=== PATIENT | male | born 1990 | race Caucasian/White ===

== ENCOUNTER 2024-06-04 10:15 | Emergency (ER) | payer OTHER, SELFPAY ==
[2024-06-04 10:30] VITALS: BP 145/92
[2024-06-04 10:50] LABS: % Basophils 0.5 % (0-2); % Eosinophils 2.8 % (0-6); % Immature Granulocytes 0.2 % (0-0.5); % Lymphocytes 48.1 % (20.5-51.1); % Neutrophils 40.4 % (42.2-75.2); Absolute Eosinophils 0.2 10^3/uL (0-0.7); Absolute Monocytes 0.5 10^3/uL (0.1-0.6); Absolute Neutrophils 2.5 10^3/uL (1.4-6.5); Hematocrit 45.8 % (39.0-52.0); Hemoglobin 15.9 g/dL (13.0-18.0); Mean Corp Hgb Conc. 34.7 g/dL (33.0-37.0); Mean Corpuscular Hgb 27.6 pg (27.0-31.0); Mean Corpuscular Volume 79.5 fL (80.0-94.0); Mean Platelet Volume 9.1 fL (7.4-10.4); Nucleated Red Blood Cells % 0 % (-); Platelet Count 188 10^3/uL (130-400); Red Blood Cell Count 5.76 10^6/uL (4.70-6.10); Red Cell Dist. Width 12.9 % (11.5-14.5); White Blood Cell Count 6.2 10^3/uL (4.8-10.8)
[2024-06-04 11:01] LABS: ALT (SGPT) 50 U/L (0-50); AST (SGOT) 34 U/L (17-59); Albumin 5.1 g/dl (3.5-5.0); Alkaline Phosphatase 63 U/L (38-126); Blood Urea Nitrogen 15 mg/dl (9-20); Calcium 9.8 mg/dl (8.4-10.2); Carbon Dioxide 30 mmol/L (22-30); Chloride 100 mmol/L (98-107); Glucose 97 mg/dl (70-99); Sodium 138 mmol/L (135-145); Total Bilirubin 1.3 mg/dl (0.2-1.3); Total Protein 7.7 g/dl (6.3-8.2); eGFR > 60.00
[2024-06-04 11:44] LABS: Troponin I < 0.012 ng/ml
[2024-06-04 11:54] VITALS: BMI 26.0
[2024-06-04 11:58] VITALS: BP 135/83
[2024-06-04 12:00] VITALS: BP 123/83
[2024-06-04 13:14] VITALS: BP 121/69
--- NOTE | 2024-06-04 13:22 | ED.GENMED ---
History of Present Illness
General
Chief Complaint: Abdominal Symptoms
Source: patient
Time Seen by Provider: 06/04/24 12:15
History of Present Illness
History of Present Illness:
34-year-old male with no significant past medical history presenting the emergency department for evaluation of anterior chest wall discomfort that has been ongoing intermittently since , no exacerbating or alleviating factors but
more recently has experienced some palpitations associated with this as well as about 2 weeks ago felt as if there was a minor bulge in the upper part of his abdomen/lower chest. Patient contacted his primary care provider but was unable to be seen
this week so decided to come to the ER for further evaluation. Patient denies any other new symptoms, fevers, chills, rigors, exertional dyspnea, orthopnea, cough, hemoptysis. No other PE risk factors. Social history was noncontributory. Family
history also noncontributory.
Past History
Past History
ED Past Medical History: None
ED Past Surgical History: None
Social History
Tobacco: Non-smoker
Alcohol: None
Drug: None
Personal:
Living: with family
Employment: Employed
Review of Systems
Review of Systems
All Other Systems: ROS reviewed and negative except as documented in HPI and ROS
Phy Exam
Physical Exam
Physical Exam:
GENERAL: Alert , in no apparent distress
EYE: clear conjunctiva b/l
HEAD: NCAT
ENT: mmm.
CARDIAC: Regular rate and rhythm
CHEST WALL: No focal areas of tenderness. I do not appreciate any hernias however the area where patient seems to be describing seeing the abnormality appears to be directly over the xiphoid process
LUNGS: Clear breath sounds bilaterally, no acute respiratory distress, no wheezes/rales/rhonchi
ABDOMEN: Soft, without focal tenderness, no r/g, no cvat
NEUROLOGICAL: Alert and oriented
SKIN: Warm and dry, skin intact.
MUSCULOSKELETAL: No edema, well perfused.
PSYCH: Normal and appropriate interaction.
Scores
Heart Failure Risk
Heart Failure Risk Score: Not Applicable
Heart Score for Chest Pain Patients
STEMI patient?: No
History: Slightly or Non-Suspicious
ECG: Normal
Age: </= 45 years
Risk Factors: No Risk Factors
Troponin: </= Normal Limit
Heart Score for Chest Pain Patients: 0
Heart Score Risk: 2.5% MACE over next 6 weeks
Withdrawal Assessment of Alcohol
Withdrawal Assessment Completed?: Not applicable
Course
Orders/Labs/Results
Orders:
Orders
06/04/24 10:33
Electrocardiogram (*1) Urgent
Reason for Study: Palpitations
06/04/24 10:34
EKG- Treatment ONCE
06/04/24 10:38
Complete Blood Count/With Diff Urgent
Comprehensive Metabolic Panel Urgent
Troponin I Urgent
06/04/24 12:30
CR Chest - 2 Views Urgent
Comment:
Reason For Exam: palpitations/chest discomfort
Abnormal Lab Results
06/04/24
10:38
MCV 79.5 L fL
(80.0-94.0)
Neutrophils % 40.4 L %
(42.2-75.2)
Albumin 5.1 H g/dl
(3.5-5.0)
06/04/24 10:38
06/04/24 10:38
Vital Signs
Initial and Last Documented VS:
Initial Vital Signs
Temp Pulse Resp BP Pulse Ox
98.4 F 67 18 145/92 97
06/04/24 10:30 06/04/24 10:30 06/04/24 10:30 06/04/24 10:30 06/04/24 10:30
Last Documented Vital Signs
Temp Pulse Resp BP Pulse Ox
98.4 F 56 9 121/69 97
06/04/24 10:30 06/04/24 13:15 06/04/24 13:15 06/04/24 13:14 06/04/24 10:30
MDM/Problems Addressed
Differential Diagnosis Includes:
Costochondritis, pleurisy, I do not have concern for ACS, no concern for PE, hernia considered however given the location of patient's pain I suspect he is palpating his xiphoid process
MDM/Problems Addressed:
34-year-old male presenting the ER for evaluation of transient chest discomfort that has been waxing and waning since the end of summertime, not any different today however notes he has been experiencing more frequent palpitations and also felt a
possible abnormality in the lower chest/upper abdomen. Based off of exam I suspect patient is the xiphoid process as I do not appreciate any hernias or other masses. For patient palpitations he is in a normal sinus rhythm and in no acute distress.
Labs were initiated on arrival and are all reassuring. EKG is nonischemic. Chest x-ray ordered does not show any abnormalities as well. Patient is otherwise stable for discharge home and outpatient follow-up with primary provider. I did provide
with information for cardiology to follow-up with
*Radiology
Radiology exam reviewed: preliminary read by ED provider (Normal chest x-ray)
*Pulse Oximetry
Patient hypoxic: no
*EKG
Interpreted by ED Provider?: Yes
Heart Rate: 74
Rate: normal
Rhythm: sinus
Ischemia: no ischemia
*Career Manager Interpretation
Rate: normal
Rhythm: sinus
*Critical Care Note
Total Time (30-74mins, 75-104mins- exclusive of procedures): Not Applicable
ED Attending Note
-
Portions of this chart may have been created with voice recognition software.� Occasional wrong word or��sound alike� substitutions may have occurred due to the inherent limitations of voice recognition software.
Discharge Plan
Departure
Patient Disposition: Home (Routine Discharge)
Date of Disposition: 06/04/24
Time of Disposition: 13:22
Patient with high blood pressure during this ER visit?: No
Discharge Problem:
Heart palpitations
Instructions: Palpitations
Referrals:
Ben Thomas MD [Active] - (Cardiology - Call for appointment)
NONE,* [Family Provider] -
Interventions
Interventions:
*Risk Screen - Suicide Last Done: 06/04/24 10:30
*General Assessment Last Done: 06/04/24 10:30
*Neglect/Abuse Screening Last Done: 06/04/24 10:30
*ED COVID-19 Vaccine History Last Done: 06/04/24 11:54
*Nursing Disposition Last Done: 06/04/24 13:40
CF-Zgjcej-Dzcywqwllp Assessment Last Done: 06/04/24 12:04
Discharge Date and Time
Discharge Date/Time: 06/04/24 13:40
Print Language: TRISTANIAN
== END 2024-06-04 13:40 | disposition home or self-care (01) ==
LOC: EMR 10:15
PROVIDERS: EMERGENCY PHYSICIAN Emergency Medicine
DX: R00.2 Palpitations (principal); R07.89 Other chest pain
CPT/HCPCS: 99285; 71046; 80053; 84484; 85025; 93005